=== PATIENT | female | born 2000 | race Caucasian/White ===

== ENCOUNTER 2019-01-05 22:19 | Inpatient (IN) | payer MEDICAID ==
[~2019-01-05] VITALS: Ht 160 cm; Wt 93.0 kg
[2019-01-05 23:21] VITALS: BP 125/91
[2019-01-06] MEDS ORDERED: DOCUSATE 100 MG CAPSULE PO PRN ×2 (01:00→11:00)
[2019-01-06] MEDS ORDERED: ACETAMINOPHEN 325 MG TABLET PO PRN (01:00)
[2019-01-06] MEDS ORDERED: TRAZODONE 50MG TABLET PO PRN (01:00)
[2019-01-06] MEDS ORDERED: POLYETHYLENE GLYCOL 17 GM PACKET PO PRN (01:00)
[2019-01-06] MEDS ORDERED: BISACODYL 10 MG SUPP PR PRN (01:00)
[2019-01-06] MEDS ORDERED: TRAZ50TA66 PO (01:55)
[2019-01-06] MEDS ORDERED: ALBU8.5H8 INH (01:55)
[2019-01-06] MEDS ORDERED: LAMO25TA52 PO (01:55)
[2019-01-06] MEDS ORDERED: LURA40TA PO (01:55)
[2019-01-06 02:08] VITALS: BP 125/91
[2019-01-06 07:43] LABS: BASOPHILS # (AUTO) 0.02 x10^3/uL (0-0.3); BASOPHILS % (AUTO) 0 % (0-1); EOSINOPHILS # (AUTO) 0.11 x10^3/uL (0-0.8); EOSINOPHILS % (AUTO) 2 % (1-7); LYMPHOCYTES # (AUTO) 1.66 x10^3/uL (1-6.1); LYMPHOCYTES % (AUTO) 30 % (22-44); MD NO; MEAN CORPUSCULAR HEMOGLOBIN 30.5 pg (27.0-34.8); MEAN CORPUSCULAR HGB CONC 33.2 g/dL (32.4-35.8); MEAN CORPUSCULAR VOLUME 91.8 fL (80-100); MEAN PLATELET VOLUME 8.6 fL (7.4-10.4); MONOCYTES % (AUTO) 9 % (2-9); NEUTROPHILS # (AUTO) 3.32 x10^3/uL (1.8-8.0); NEUTROPHILS % (AUTO) 59 % (42-75); PLATELET COUNT 266 x10^3/uL (130-400); RED BLOOD COUNT 5.03 x10^6/uL (3.82-5.3); RED CELL DISTRIBUTION WIDTH 12.9 % (9.6-15.2)
[2019-01-06 07:47] LABS: HCT (SEDRATE) 46.1 % (34.6-47.8)
[2019-01-06 07:48] VITALS: BP 108/69
[2019-01-06 08:00] LABS: CHLORIDE 108 mmol/L (98-107)
[2019-01-06 08:28] LABS: ALANINE AMINOTRANSFERASE 22 U/L (12-78); ALBUMIN 3.7 g/dL (3.4-5.0); ALKALINE PHOSPHATASE 56 U/L (45-117); ANION GAP 8 mmol/L (5-15); BILIRUBIN,TOTAL 0.6 mg/dL (0.2-1.0); CALCIUM 8.8 mg/dL (8.5-10.1); CHOL/HDL RATIO 3.8; CHOLESTEROL, TOTAL 149 mg/dL (140-239); CREATININE 0.75 mg/dL (0.55-1.02); FREE T4 (FREE THYROXINE) 1.05 ng/dL (0.76-1.46); HDL CHOL % 26 % (28-40); HDL CHOLESTEROL (DIRECT) 39 mg/dL (40-60); LDL CHOLESTEROL,CALCULATED 95 mg/dL (54-169); LDL/HDL RATIO 2.4 (0.5-3.0); TOTAL PROTEIN 7.8 g/dL (6.4-8.2); TRIGLYCERIDES 75 mg/dL (50-200); VLDL CHOLESTEROL 15 mg/dL (0-25)
[2019-01-06] MEDS: LAMOTRIGINE 25 MG TABLET PO SCH (09:51)
[2019-01-06] MEDS: QUETIAPINE 25MG TABLET PO PRN ×2 (09:51→21:44)
[2019-01-06] MEDS ORDERED: ONDANSETRON ODT 4 MG PO PRN (11:00)
[2019-01-06 11:09] LABS: MICROSCOPIC INDICATED
[2019-01-06 11:14] LABS: CULTURE INDICATED? YES
[2019-01-06] MEDS ORDERED: ALBUTEROL SULFATE 2.5 MG/3 ML NPPB PRN (11:30)
[2019-01-06 13:35] LABS: FREE T4 (FREE THYROXINE) 1.08 ng/dL (0.76-1.46)
[2019-01-06 19:44] VITALS: BP 101/75
[2019-01-06 21:39] LABS: AMPHETAMINE SCREEN, URINE Negative (Negative); BARBITURATE SCREEN, URINE Negative (Negative); BENZODIAZEPINE SCREEN, URINE Negative (Negative); CANNABINOID SCREEN, URINE Positive (Negative); COCAINE SCREEN, URINE Negative (Negative); METHADONE SCREEN, URINE Negative (Negative); OPIATE SCREEN, URINE Negative (Negative)
[2019-01-06] MEDS: ACETAMINOPHEN 325 MG TABLET PO PRN (21:47)
[2019-01-07 07:15] VITALS: BP 116/78
[2019-01-07] MEDS: LAMOTRIGINE 25 MG TABLET PO SCH (08:52)
[2019-01-07] MEDS: ACETAMINOPHEN 325 MG TABLET PO PRN (08:53)
[2019-01-07] MEDS ORDERED: LAMO25TA9 PO (16:04)
[2019-01-07] MEDS ORDERED: QUET25TA7 PO (16:04)
[2019-01-07 20:04] VITALS: BP 112/77
[2019-01-07 20:46] LABS: MICROSCOPIC NOT IND
[2019-01-07 20:49] LABS: CULTURE INDICATED? NO
[2019-01-07] MEDS: QUETIAPINE 25MG TABLET PO PRN (22:07)
[2019-01-08] MEDS ORDERED: ALBUTEROL SULFATE 2.5 MG/3 ML NPPB PRN (04:00)
[2019-01-08 07:32] VITALS: BP 113/61
[2019-01-08] MEDS: LAMOTRIGINE 25 MG TABLET PO SCH (08:28)
== END 2019-01-08 10:59 | disposition home or self-care (01) | DRG 753 ==
LOC: 3E 23:00
PROVIDERS: ADMIT Psychiatry & Neurology Psychosomatic Medicine; ATTEND Psychiatry & Neurology Psychosomatic Medicine
DX: F31.30 Bipolar disorder, current episode depressed, mild or moderate severity, unspecified (principal); R45.851 Suicidal ideations; F12.10 Cannabis abuse, uncomplicated; F41.1 Generalized anxiety disorder; F43.10 Post-traumatic stress disorder, unspecified; F63.9 Impulse disorder, unspecified; G47.00 Insomnia, unspecified; J45.909 Unspecified asthma, uncomplicated; Z79.899 Other long term (current) drug therapy; Z81.3 Family history of other psychoactive substance abuse and dependence; Z91.410 Personal history of adult physical and sexual abuse
CPT/HCPCS: 36415; 71045; 80053; 80061; 80307; 81001; 81003; 82140; 82607; 84439; 84443; 84702; 85025; 85651; 86592; 87086; 87147; 93005; 99285